=== PATIENT | female | born 1930 | race Caucasian/White ===

== ENCOUNTER → 2018-08-14 | Outpatient (CLI) | payer MEDICARE ==
[~2018-08-14] MED LIST: ACET250T19 PO; ASPI-757 PO; BETA1TAB44 PO; CHOL40003 PO; DEN60I SUBQ; ESC10 PO; FISHOIL PO; FLUT16SP19 NS; GUAI473L81 PO; HCTZ25 PO; LEV125 PO; LEVO25TA61 PO; LOSA25TA57 PO; METH25TA7 PO; METO25TA93 PO; MULT-865 PO; NEBI10TA4 PO; NEBI20TA3 PO; OLM20 PO; OLME40TA17 PO; OSEL30CA2 PO; SIMV10TA98 PO; VIT1CAPS32 PO; WARF1TAB15 PO; WHEA1POW10 PO; [UNRECOGNIZED DRUG - CODE] PO
--- NOTE | 2018-08-14 11:57 | RADIOLOGY IMAGING REPORT ---
[place] [facility] [place] NAME: Lorena Downey : 1930 MR: [id number] V: [id number] EXAM DATE: ORDERING PHYSICIAN: PEDRO LI TECHNOLOGIST: [facility] Patient: Lorena Downey : 1930 Visit/Account:[id number] Date of Sevice: 08/14/2018 DEXA Scan Clinical history: Hysterectomy at age 39. Comparison: DEXA scan from 07/16/2016. LUMBAR SPINE: The bone mineral density (BMD) measured from L1-L4 correlates with a Z-score of 1.2 and a T-score of -0.8 which is Normal as defined by the World Health Organization. The corresponding risk of fracture in the lumbar spine is 1-2 times increased compared with a young adult reference population. This v alue has increased by 2.8 % since the prior study. More than 5% change is considered significant. HIP: Bone mineral density (BMD) measured in the LEFT total hip region correlates with a Z-score 1.2 and a T-score of -1.3 which is osteopenia as defined by the World Health Organization. The corresponding r isk of fracture in the hip is 2-3 times increased compared to a young adult reference population. Thi s value has increased by seven % since the prior study. More than 5% change is considered significan t. T score left femoral neck -1.8 Bone mineral density (BMD) measured in the Femoral Neck region measures 0.790 g/cm?. IMPRESSION: 1. Lumbar spine: Normal. There has been 2.8% increase in the bone mineral density since the previou s exam. 2. Left Total Hip: Osteopenia. There has been 7% increase in the bone mineral density since the pre vious exam. 3. Femoral Neck: Bone Mineral Density is 0.790 g/cm? The next DEXA scan of this patient should include the following sites: L1-L4 and the left hip. FRAX? WHO Fracture Risk Assessment Tool link: <http://www.shef.ac.uk/FRAX/tool.jsp?locationValue=9> PLEASE NOTE: 1) The World Health Organization defines low BMD as follows: T-score Normal > -1 Osteopenia < -1 and > -2.5 Osteoporosis < -2.5 without fractures Established osteoporosis < -2.5 with fractures 2) In general, you may wish to consider: Diagnosis Treatment Follow-up DEXA Normal BMD Prevention 2-3 years Osteopenia Prevention/therapy 1-2 years Osteoporosis Therapy Yearly 3) Fracture risk estimated from the T-score is more accurate for vertebral fractures (often spontane ous) than for hip fractures. Report Dictated By: Wendy Aquino MD at 08/14/2018 11:50 AM Report E-Signed By: Wendy Aquino MD at 08/14/2018 11:52 AM WSN:[email or web address]
== END ==
LOC: US 00:54
PROVIDERS: ATTEND Family Medicine
DX: M85.852 Other specified disorders of bone density and structure, left thigh (principal)
CPT/HCPCS: 77080

== ENCOUNTER → 2018-08-27 | Outpatient (CLI) | payer MEDICARE | LOC: LAB 13:37 | PROVIDERS: ATTEND Surgery | DX: L72.0 Epidermal cyst (principal) | CPT/HCPCS: 88305 ==